=== PATIENT | male | born 1950 | race Caucasian/White ===

== ENCOUNTER 2021-07-06 08:15 | Inpatient (IN) | payer OTHER ==
[~2021-07-06] VITALS: Ht 177.8 cm; Wt 108.8 kg
[~2021-07-06 08:15] MED LIST: ALOGLIPTIN12.5 M1 PO; ATOR40TA PO; DOXE10 PO; HUMULIN N100 UNIT/6; HYDHCL25 PO; JARDIANCE25 MG PO; LEVSOD100 PO; NORVASC5 MG PO; OMEP20ER PO
--- NOTE | 2021-08-17 14:07 | NUR ---
TOOK OVER PATIENT CARE AFTER REPORT WAS RECEIVED.
--- NOTE | 2021-08-17 17:18 | NUR ---
SENSATION FELT FROM LEFT SIDE OF NECK DOWN TO FINGERS NOT MOVING HIS FINGERS WHEN ASKED
--- NOTE | 2021-08-17 18:44 | NUR ---
PATIENT ARRIVED TO UNIT VIA BED ABOUT 1740. VSS, ON 2L OR VIA NC. POD0 L TSA, AQUACEL IN PLACE, C/D/I. POLAR PACK TO R SHOULDER. PATIENT DENIES PAIN, WIGGLES FINGERS ON L HAND WELL. REPORTS FULL SENSATION TO NECK & FINGERS. EATING & DRINKING WELL, DENIES N/V. AWAITING POST-OP VOID. CALLS APPROPRIATELY, WILL REPORT TO ONCOMING RN.
--- NOTE | 2021-08-18 04:37 | NUR ---
SHIFT SUMMARY POD 0 LEFT TOTAL SHOULDER. PT PAIN HAS BEEN MIMINAL THIS SHIFT, PT MEDICATED X1 FOR PAIN WITH EFFECT. PT ABLE TO MOVE FINGERS, DENIES NUMBNESS BUT REPORTS SOME TINGLING. POLAR PACK AND SLING IN PLACE. DRESSING INTACT. RESTFUL NIGHT, BED IN LOWEST POSITION, CALL LIGHT WITHIN REACH.
[2021-08-18 05:23] LABS: Bun/Creatinine Ratio 24.2 (12.0-20.0); Calcium, Blood 9.7 mg/dL (8.5-10.1); Creatinine, Blood 1.49 mg/dL (0.60-1.20); Potassium, Blood 4.9 mmol/L (3.5-5.5)
[2021-08-18 05:25] LABS: BASOPHILS ABSOLUTE AUTO 0.07 K/mm3 (0.00-0.23); BASOPHILS PERCENT AUTO 0 % (0-2); EOSINOPHILS ABSOLUTE AUTO 0.06 K/mm3 (0.00-0.68); EOSINOPHILS PERCENT AUTO 0 % (0-6); Hematocrit 52.4 % (37.0-53.0); Hemoglobin 17.4 g/dL (13.5-17.5); IMMATURE GRAN ABSOLUTE AUTO 0.03 K/mm3 (0.00-0.10); IMMATURE GRAN PERCENT AUTO 0 % (0-1); LYMPHOCYTES ABSOLUTE AUTO 0.51 K/mm3 (0.84-5.20); LYMPHOCYTES PERCENT AUTO 3 % (21-46); MONOCYTES ABSOLUTE AUTO 0.82 K/mm3 (0.16-1.47); MONOCYTES PERCENT AUTO 5 % (4-13); Mean Corpuscular HGB 29.2 pg (26.0-34.0); Mean Corpuscular HGB Conc 33.2 g/dL (31.5-36.5); Mean Corpuscular Volume 88 fL (80-100); NEUTROPHILS ABSOLUTE AUTO 15.96 K/mm3 (1.96-9.15); NEUTROPHILS PERCENT AUTO 92 % (41-73); RDW Coefficient Variation 13.7 % (11.7-14.2); RDW Standard Deviation 44.6 fL (35.1-46.3); Red Blood Cell Count 5.95 M/mm3 (4.30-5.90); White Blood Cell Count 17.45 K/mm3 (4.00-11.30)
[2021-08-18 05:26] LABS: Mean Platelet Volume 12.1 fL (9.1-12.4); Platelet Count 103 K/mm3 (150-400)
[2021-08-18] MEDS ORDERED: OXYC5 PO (09:14)
[2021-08-18] MEDS ORDERED: ASPI81CH PO (09:14)
--- NOTE | 2021-08-18 10:54 | NUR ---
DISCHARGE PT PROVIDED WITH WRITTEN AND VERBAL DISCHARGE INSTRUCTIONS; HE REPORTED UNDERSTANDING. PT EDUCATED HOW AND WHY TO USE POLAR PACK. PT'S BELONGINGS RETURNED. PT VOIDING, TOLERATING PO, PAIN MANAGED AND CLEARED PHYSICAL AND OCCUPATIONAL THERAPY PRIOR TO DISCHARGE. PER OT/PT PT IS SLIGHTLY UNSTEADY ON HIS FEET AND THIS APPEARS TO BE BASELINE. [facility]SP[facility] AR[facility]ANG[facility]. PT DISCHARGED AT 1050 WITH W/C TRANSPORT.
--- NOTE | 2021-08-18 11:00 | NUR ---
08/18/21 [facility] [address] VERIFICATIONS: EDIT CHART.
== END 2021-08-18 10:53 | disposition home or self-care (01) | DRG 483 ==
LOC: PRE IP 08:15 → SURS 08-17 10:57 → PRE IP 08-17 11:45 → SURS 08-17 17:38
PROVIDERS: ADMIT Orthopaedic Surgery
PROC: 0RRK0JZ Replacement of Left Shoulder Joint with Synthetic Substitute, Open Approach (ICD-10-PCS; principal; 2021-08-17 13:30)
DX: M19.012 Primary osteoarthritis, left shoulder (principal); E11.9 Type 2 diabetes mellitus without complications; K21.9 Gastro-esophageal reflux disease without esophagitis; I10 Essential (primary) hypertension; E78.5 Hyperlipidemia, unspecified; E07.9 Disorder of thyroid, unspecified; Z90.49 Acquired absence of other specified parts of digestive tract; Z88.6 Allergy status to analgesic agent; Z79.4 Long term (current) use of insulin; Z79.899 Other long term (current) drug therapy
CPT/HCPCS: 36415; 73030; 80048; 82947; 85025; 97110; 97116; 97162; 97165; 97535; A9270; C1776; J0171; J0690; J0735; J1100; J1885; J2250; J2405; J2704; J2795; J3010

== ENCOUNTER 2022-06-09 06:31 | Day surgery (SDC) | payer OTHER ==
[~2022-06-09] VITALS: Ht 177.8 cm; Wt 102.3 kg
[~2022-06-09 06:31] MED LIST changes: +ASPI81CH PO; +METF500 PO; +OXYC5 PO
[2022-06-09] MEDS ORDERED: OZEMPIC0.25 MG/01 SQ (06:47)
[2022-06-09] MEDS ORDERED: TRAZ100 PO (06:48)
[2022-06-09] MEDS ORDERED: NOVOLIN N100 UNIT/2 SQ (06:49)
--- NOTE | 2022-06-09 06:53 | NUR ---
06/09/22 0653 Milady Mackey AT 0648 PLEDGET AT [phone]
[2022-06-09 08:29] VITALS: BP 118/64
--- NOTE | 2022-06-09 08:29 | NUR ---
06/09/22 0829 JUSTINA ROTHMAN-STUDENT, ASSISTING WITH CARE.
== END 2022-06-09 08:45 | disposition home or self-care (01) ==
LOC: ORSCSDS 06:31
PROVIDERS: Ophthalmology
PROC: 08DK3ZZ Extraction of Left Lens, Percutaneous Approach (ICD-10-PCS; principal; 2022-06-09 08:00)
DX: E11.36 Type 2 diabetes mellitus with diabetic cataract (principal); H25.12 Age-related nuclear cataract, left eye; E78.5 Hyperlipidemia, unspecified; I10 Essential (primary) hypertension; K21.9 Gastro-esophageal reflux disease without esophagitis; E07.9 Disorder of thyroid, unspecified; F32.A Depression, unspecified; F41.9 Anxiety disorder, unspecified; Z79.4 Long term (current) use of insulin; Z79.84 Long term (current) use of oral hypoglycemic drugs; Z79.899 Other long term (current) drug therapy
CPT/HCPCS: 82947; J2001; J2250; J3010; J3301; J7040; V2632